=== PATIENT | female | born 1950 | race Caucasian/White ===

== ENCOUNTER 2016-09-08 01:19 | Inpatient (IN) | payer OTHER, MEDICARE ==
[~2016-09-08] VITALS: Ht 156.2 cm; Wt 89.8 kg
[~2016-09-08 01:19] MED LIST: ASPIRIN EC325 M2 PO; COLACE100 M1 PO; DILAUDID2 M1 PO; HYDROCHLOROTH12.5 M2 PO; LIPITOR10 M1 PO; MIRALAX17 G1 PO; MS CONTIN15 M2 PO; MULTI-DAY VITA1 EACH PO; RW; TYLENOL EXTRA500 M2 PO; VITAMIN C500 M6 PO
--- NOTE | 2016-09-08 12:55 | Admission Core Measures ---
Admission Meds I reviewed the following Meds: Current Medications Sig/Gideon Start time Last Medication Dose Stop Time Status Admin Acetaminophen 975 MG ONCE 09/08 NR (Tylenol) 09/08 2358 Atorvastatin Calcium 10 MG DAILY 09/09 1000 UNVr (Lipitor) Cefazolin Sodium 2,000 MG ONCE 09/08 NR (Kefzol-Ancef Inj) 09/08 2358 Hydrochlorothiazide 12.5 MG DAILY 09/09 1000 UNVr (Hydrodiuril) Oxycodone HCl 10 MG ONCE 09/08 NR (Roxicodone) 09/08 2358 Acute Coronary Syndrome Inclusion Criteria ACS Diagnosis No Inpatient Core Measures LDL Reminder: If No, please order W/I first 24hr of stay Congestive Heart Failure Inclusion Criteria CHF Diagnosis No Cerebrovascular accident Inclusion Criteria CVA/TIA Diagnosis No Inpatient Core Measures Bedside Swallow Eval Reminder: If BSE failed, place ST order Antithrombotic Reminder: Order Antithrombotic Medication by end of day 2 Antithrombotic Reminder: Document Reason Antithrombotic Not ordered by end of day 2 AFIB/Flutter Reminder: If Present, add to problem list AFIB/Flutter Reminder: Order Anticoag Medication for pts with AFIB/Flutter Atherosclerosis Reminder: If Present, add to problem list LDL Reminder: If No, please order W/I first 24hr of stay PT Order Reminder: If No, please order Venous thromboembolism Inpatient Core Measures VTE Risk Factors: Age > 40, Surgery No [facility] VTE prophylaxis d/t No contraindications No VTE Pharm Prophylaxis d/t No contraindications Inclusion Criteria - Per Current guidelines, there needs to be overlap - treatment for the first 5 days of Warfarin therapy. - Parenteral Anticoagulation (IV or SC) needs to be - given along with Warfarin therapy. VTE Diagnosis No VTE Type NONE VTE Confirmed by (Test) NONE Problem List As ranked by this Provider includes Assessment & Plan 1. Unilateral primary osteoarthritis, right knee HOME MEDS Home Med List Ascorbate Calcium (Vitamin C) 500 MG TABLET 1 TAB PO DAILY SUPPLEMENT ( Reported) Atorvastatin Calcium (Lipitor) 10 MG TABLET 1 TAB PO DAILY CHOLESTEROL ( Reported) Hydrochlorothiazide 12.5 MG TABLET 1 TAB PO DAILY BP (Reported) Multivitamin (Multi-Day Vitamins) 1 EACH TABLET 1 TAB PO DAILY SUPPLEMENT ( Reported)
[2016-09-08] MEDS ORDERED: ASPIRIN EC325 M2 PO (12:56)
[2016-09-08] MEDS ORDERED: PRILOSEC OTC20 M1 PO (12:56)
[2016-09-08] MEDS ORDERED: MIRALAX17 G1 PO (12:56)
[2016-09-08] MEDS ORDERED: COLACE100 M1 PO (12:56)
[2016-09-08] MEDS ORDERED: DILAUDID2 M1 PO (12:56)
--- NOTE | 2016-09-08 13:00 | Patient Discharge Instructions ---
Discharge Instructions General Discharge Information You were seen/treated for: RIGHT KNEE PAIN You had these procedures: RIGHT TOTAL KNEE REPLACEMENT Watch for these problems: INCREASING PAIN DESPITE THE USE OF PAIN MEDICATION. REDNESS, WARMTH, SWELLING. DISCHARGE OF ANY TYPE FROM INCISION. INABILITY TO BEAR WEIGHT ON RIGHT LEG. FEVER GREATER THAN 101.5 DEGREES. Do not soak the wound: Yes No bath, but you may shower: Yes Other wound care: KEEP WOUND CLEAN AND DRY. NO OINTMENTS OF ANY TYPE ON OR NEAR INCISION. NO EXCEPTIONS. DAILY DRY DRESSING CHANGES Special Instructions: ASPIRIN: YOU WILL BE REQUIRED TO TAKE ASPIRIN TWICE DAILY FOR A MINIMUM OF 3 WEEKS. THIS IS VERY IMPORTANT IT WILL HELP PROTECT YOU FROM DEVELOPING A BLOOD CLOT. PLEASE TAKE WITH FOOD TO PROTECT YOUR STOMACH LINING. YOU HAVE ALSO BEEN GIVEN PRILOSEC WHICH IS A MEDICATION THAT WILL ALSO HELP TO PROTECT YOUR STOMACH. CONSTIPATION: CONSTIPATION IS COMMON WITH THE USE OF PAIN MEDICATIONS. DR. LARIOS HAS GIVEN YOU COLACE AND MIRALAX TO HELP WITH YOUR BOWEL MOVEMENTS. PLEASE TAKE THESE MEDICATIONS DIRECTED. Diet Continue normal diet: Yes Recommended Diet: Regular Additional DIET Information: ADVANCE TOLERATED Activity Full Activity/No Limits: No Activity Self Limited: Yes Pounds, do NOT lift more than: 10 Additional ACTIVITY Info: WEIGHT BEAR TOLERATED Acute Coronary Syndrome Inclusion Criteria At DC or during hospital stay patient has or had the following: ACS DIAGNOSIS No Discharge Core Measures Meds if any: Prescribed or Continued at Discharge Meds if any: NOT Prescribed or Continued at Discharge Congestive Heart Failure Inclusion Criteria At DC or during hospital stay patient has or had the following: CHF DIAGNOSIS No Discharge Core Measures Meds if any: Prescribed or Continued at Discharge Meds if any: NOT Prescribed or Continued at Discharge Cerebrovascular accident Inclusion Criteria At DC or during hospital stay patient has or had the following: CVA/TIA Diagnosis No Discharge Core Measures Meds if any: Prescribed or Continued at Discharge Meds if any: NOT Prescribed or Continued at Discharge Venous thromboembolism Inclusion Criteria VTE Diagnosis No VTE Type NONE VTE Confirmed by (Test) NONE Discharge Core Measures - Per Current guidelines, there needs to be overlap - treatment for the first 5 days of Warfarin therapy. - If discharged on Warfarin prior to 5 days of - overlap therapy, the patient will need to be - assessed for post discharge needs including - *Post discharge parental anticoagulation - *Warfarin and/or parental anticoagulation education - *Follow up date to check INR post discharge At least 5 days overlap therapy as Inpatient No Meds if any: Prescribed or Continued at Discharge Note: Overlap Therapy is Warfarin and Anticoagulant Meds if any: NOT Prescribed or Continued at Discharge
--- NOTE | 2016-09-08 13:04 | Surgical Discharge Summary ---
Visit Information Visit Dates Admission Date: 09/08/16 Discharge Date: 09/11/16 History of Present Illness Chief Complaint: RIGHT KNEE PAIN SECONDARY TO OSTEOARTHRITIS Medical History Neurological: NONE EENT: NONE Cardiovascular: hypertension, hyperlipidemia Respiratory: COPD Gastrointestinal: NONE Hepatic: NONE Renal: NONE Musculoskeletal: NONE, osteoarthritis Psychiatric: NONE Endocrine: NONE Blood Disorders: NONE Cancer(s): NONE SALES PRODUCER/Reproductive: NONE History of MRSA: No History of VRE: No History of CDIFF: No Surgical History Pertinent Surgical History: HYSTERECTOMY Psychosocial History Who Do You Live With? Spouse Services at Home: None What is Your Primary Language? Bruneian Review of Systems: SEE H&P Hospital Course Course Attending Physician: ANITHA LARIOS MD Primary Care Physician: KIERA BOYD APRN [facility] Course: ADIA WAS ADMITTED TO THE HOSPITAL ON 09/08/2016 FOR AN ELECTIVE RIGHT TOTAL KNEE REPLACEMENT. SHE TOLERATED THE PROCEDURE WELL AND SHE WAS TRANSFERRED TO A GENERAL SURGICAL FLOOR. HER VITAL SIGNS WERE STABLE AND WITHIN NORMAL LIMITS. SHE REMAINED NEUROVASCULARLY INTACT. HER DIET WAS ADVANCED AND TOLERATED. SHE VOIDED SPONTANEOUSLY. HER PAIN WAS CONTROLLED WITH PO PAIN MEDICATION. SHE WAS EVALUATED AND TREATED BY PHYSICAL THERAPY AND DEEMED APPROPRIATE FOR DISCHARGE. Allergies: Coded Allergies: Sulfa (Sulfonamide Antibiotics) (FLU LIKE SYMPTOMS 08/27/15) Disposition Summary Disposition Principal Diagnosis: RIGHT KNEE UNILATERAL PRIMARY OSTEOARTHRITIS Additional Diagnosis: NONE Discharge Disposition: home health services Discharge Instructions General Discharge Information Code Status: Full Code Patient's Diet: REGULAR, ADVANCE TOLERATED Patient's Activity: WBAT Follow-Up Instructions/Appts: 6 WEEKS FROM DATE OF SURGERY WITH DR. LARIOS Medications at Discharge Discharge Medications: Continue taking these medications: Atorvastatin Calcium (Lipitor) 10 MG TABLET 1 Tablet ORAL DAILY Comments: LAST DOSE GIVEN ON 08/29/15 AT 4:00PM Hydrochlorothiazide (Hydrochlorothiazide) 12.5 MG TABLET 1 Tablet ORAL DAILY Comments: LAST DOSE GIVEN ON 08/30/15 AT 8:30AM Multivitamin (Multi-Day Vitamins) 1 EACH TABLET 1 Tablet ORAL DAILY Comments: LAST DOSE GIVEN ON 08/30/15 AT 8:30AM Ascorbate Calcium (Vitamin C) 500 MG TABLET 1 Tablet ORAL DAILY Comments: LAST DOSE GIVEN ON 08/30/15 AT 8:30AM Start taking the following new medications: Aspirin (Ecotrin*) 325 MG TABLET. 1 Tablet ORAL TWICE DAILY Qty = 60 No Refills Docusate Sodium (Colace) 100 MG CAPSULE 1 Capsule ORAL TWICE DAILY Qty = 14 No Refills Instructions: DISCONTINUE USE IF YOU DEVELOP LOOSE STOOL OR DIARRHEA Hydromorphone HCl (Dilaudid) 2 MG TABLET 1-2 Tablet ORAL EVERY 4-6 HOURS as needed for PAIN Qty = 36 No Refills Polyethylene Glycol 3350 (Miralax) 17 GRAM POWD.PACK 1 Packet ORAL DAILY Qty = 7 No Refills Instructions: dissolve in water, DISCONTINUE USE IF YOU DEVELOP LOOSE STOOL OR DIARRHEA Omeprazole Magnesium (Prilosec Otc) 20 MG TABLET.DR 1 Tablet ORAL DAILY Qty = 30 No Refills
--- NOTE | 2016-09-08 15:02 | Operative Report ---
Operative/Inv Procedure Report Surgery Date: 09/08/16 Name of Procedure: Right total knee replacement Pre-Operative Diagnosis: Primary right knee DJD Post-Operative Diagnosis: Same Estimated Blood Loss: 50ml to 100ml Surgeon/Hand Turner: RIC MOREL,ANITHA Hinkle Anesthesia: block Operative/Procedure Note Note: Description of Procedure: The patient was taken to the operating room and positively identified. After induction of spinal anesthesia and administration of appropriate pre-operative antibiotics, the patient was positioned supine on the operating room table and all bony prominences were well padded. A well-padded pneumatic tourniquet was placed on the right upper thigh. After performing a surgical timeout, the right lower extremity was prepped and draped in the usual sterile fashion. After exsanguination with Esmarch the tourniquet was inflated to 250mm of mercury. A standard medial parapatellar approach was made to the knee. This was carried down through skin and subcutaneous tissue to the level of the fascia. Meticulous hemostasis was maintained with Bovie electrocautery. The extensor mechanism and patellar retinaculum were opened sharply and the patella was everted. The infrapatellar fat was resected in order to improve exposure. Osteophytes were trimmed from the patella and femoral condyles and the patella was re-everted and tucked laterally. A medial release was performed and the cruciate ligaments were resected. The tibia was then subluxed anteriorly. Utilizing the appropriate extra-medullary guide, the proximal tibia was trimmed perpendicular to the long axis of the tibial shaft. Attention was then turned to the femur. After opening the medullary canal, the distal femoral cut was made in 6 degrees of valgus utilizing the appropriate intra-medullary guide. The extension gap was checked and found to be appropriate. The femur was then sized and the remainder of the femoral cuts were made with a size 3 4-in-1 femoral cutting guide. The flexion gap was checked and found to be symmetric and appropriate. The knee was then trialed with a size 3 femoral component, a size 3 tibial component and a size 13 mm polyethylene insert. The patella was trimmed to accept an A 32 patella. This yielded excellent range of motion, stability and patellar tracking. All trial components were removed and the knee was copiously irrigated with sterile saline. All components were cemented into place with Molt Simplex cement. All the components were of the Primo Triathlon knee system of the above stated sizes. The knee was again irrigated after cementation. The extensor mechanism and patellar retinaculum were repaired using interrupted #1 vicryl suture. The skin was re-approximated with 2-0 vicryl and closed with brijesh. A sterile dressing was applied, the tourniquet was deflated, the patient was awakened and taken to the recovery room in satisfactory condition.
--- NOTE | 2016-09-08 16:59 | PN- Orthopedic ---
Subjective Subjective: POST-OP NOTE: Asking for nicotine patch. She reports heavy smoking, 1 ppd. Taking ice chips. No nausea. Eager for dinner. Not yet out of bed. No dizziness. No shortness of breath. No chest pains. Objective Vital Signs and I&Os pacu flowsheet reviewed Physical Exam: General - alert & oriented x 3. comfortable. no acute distress. Lungs - clear bilaterally. no w/r/r. Cardiac - s1s2. reg. Abdomen - soft. nontender. - arenas draining clear, yellow urine. Extremities - warm bilaterally. right leg dressing c/d/i. ice pack in place. on q in place. able to move toes. still somewhat numb but starting to regain sensation. Assessment/Plan Assessment/Plan This 66 year old female with hx htn is POD#0 s/p right total knee replacement advance diet as tolerated medina-operative ancef x 2 doses pain control as needed on q to be removed on POD#2 dressing change POD#2 d/c arenas in am PT eval f/u am labs nicotine patch ordered asa bid home meds ordered d/c planning, goal is for home tuesday will d/w Core Measures/Miscellaneous Venous Thromboembolism VTE Risk Factors: Age > 40, Surgery VTE Contraindications: No Contraindications VTE Diagnosis: No VTE Type: NONE VTE Confirmed by (Test): NONE Beta Brain Is Beta Brain a Home Med? No Antibiotics Is Patient on Antibiotics? Yes If Yes: prophylaxis
[2016-09-08 18:15] VITALS: BP 136/82
[2016-09-08 20:11] VITALS: BP 125/91
[2016-09-08 22:24] VITALS: BP 120/70
[2016-09-08 23:55] VITALS: BP 118/79
[2016-09-09 04:08] VITALS: BP 100/56
[2016-09-09 08:05] LABS: ABSOLUTE BASOPHIL COUNT 0 /CUMM (0.0-0.2); ABSOLUTE EOSINOPHIL COUNT 0 /CUMM (0.0-0.7); ABSOLUTE GRANULOCYTE CT 10.4 /CUMM (1.4-6.5); ABSOLUTE LYMPH COUNT 0.5 /CUMM (1.2-3.4); ABSOLUTE MONOCYTE COUNT 0.6 /CUMM (0.10-0.60); BASOPHIL % 0 % (0.0-2.0); EOSINOPHIL % 0 % (0-5); GRANULOCYTE % 90.1 % (42.2-75.2); HEMATOCRIT 32.6 % (37-47); MEAN CORPUSCULAR VOLUME 102.8 FL (81.0-99.0); MEAN PLATELET VOLUME 8.3 FL (7.4-10.4); PLATELET COUNT 210 /CUMM (130-400); RBC DISTRIBUTION WIDTH 14.4 % (11.5-14.5); RED BLOOD CELL CT 3.17 /CUMM (4.20-5.40); WHITE BLOOD CELL COUNT 11.6 /CUMM (4.8-10.8)
--- NOTE | 2016-09-09 08:20 | PN- Orthopedic ---
Subjective Subjective: Pt. states she had a good night. Denies pain.Received Diludid PO at night with good relief Objective Vital Signs and I&Os Vital Signs Date Time Temp Pulse Resp B/P B/P Pulse O2 O2 Flow FiO2 Mean Ox Delivery Rate 09/09 0408 98.2 58 18 100/56 93 Room Air 09/09 0000 Room Air 09/08 2355 97.9 62 18 118/79 95 Room Air 09/08 2224 97.6 62 20 120/70 95 09/08 2010 97.1 77 18 125/91 96 09/08 1815 97.7 77 18 136/82 97 Room Air Intake & Output 09/09 1600 09/09 0800 09/09 0000 09/08 1600 09/08 0800 09/08 0000 Intake Total 720 600 Output Total 800 200 Balance -80 400 Intake, IV 600 300 Intake, Oral 120 300 Output, Urine 800 200 Patient 198 lb Weight Weight Reported by Patient Measurement Method Alert, oriented Lungs clear bilat after clearing with cough COR regular Abdomen benign R knee with Edwin dressing over C/D/I On Q pump intact Calf supple Foot warm with good distal perfusion Gross motor fxn intact,limited knee motion due to dressing.Good peripheral sensation. Assessment/Plan Assessment/Plan s/p RTKA for DJD Progressing well as expected. Stable hemodynamically with adequate vital signs. RLE with adeaute neurovascular perfusion. Pain adequately controlled with oral Dilaudid and On Q pump. Dressing change and On Q pump removal tomorrow Awaiting PT eval. and mobilization today Taking PO well,making adequate urine; will hep lock IVF and d/c [place] On ASA for anticoagulation Discharge likely Tuesday to home. Core Measures/Miscellaneous Venous Thromboembolism VTE Risk Factors: Age > 40, Surgery VTE Contraindications: No Contraindications VTE Diagnosis: No VTE Type: NONE VTE Confirmed by (Test): NONE Beta Brain Is Beta Brain a Home Med? No Antibiotics Is Patient on Antibiotics? Yes If Yes: prophylaxis
[2016-09-09 14:40] VITALS: BP 122/60
[2016-09-09 22:32] VITALS: BP 124/68
[2016-09-10 06:10] VITALS: BP 138/72
[2016-09-10 07:41] LABS: ABSOLUTE BASOPHIL COUNT 0 /CUMM (0.0-0.2); ABSOLUTE EOSINOPHIL COUNT 0.1 /CUMM (0.0-0.7); ABSOLUTE GRANULOCYTE CT 5.7 /CUMM (1.4-6.5); ABSOLUTE LYMPH COUNT 1.6 /CUMM (1.2-3.4); ABSOLUTE MONOCYTE COUNT 0.8 /CUMM (0.10-0.60); BASOPHIL % 0.2 % (0.0-2.0); EOSINOPHIL % 0.7 % (0-5); GRANULOCYTE % 69.4 % (42.2-75.2); HEMATOCRIT 32.1 % (37-47); MEAN CORPUSCULAR HGB 34.8 PG (27.0-31.0); MEAN CORPUSCULAR HGB CONC 33.7 G/DL (33.0-37.0); MEAN CORPUSCULAR VOLUME 103.3 FL (81.0-99.0); MEAN PLATELET VOLUME 8.3 FL (7.4-10.4); PLATELET COUNT 208 /CUMM (130-400); RBC DISTRIBUTION WIDTH 14.7 % (11.5-14.5); RED BLOOD CELL CT 3.11 /CUMM (4.20-5.40); WHITE BLOOD CELL COUNT 8.2 /CUMM (4.8-10.8)
[2016-09-10 09:45] VITALS: BP 142/78
--- NOTE | 2016-09-10 10:38 | PN- Orthopedic ---
Subjective Subjective: POD#2 S/P RIGHT TKA 7/10 ANTERIOR KNEE PAIN LYING IN BED DENIES CP, SOB, NO N+V WITH DIET Objective Vital Signs and I&Os Vital Signs Date Time Temp Pulse Resp B/P B/P Pulse O2 O2 Flow FiO2 Mean Ox Delivery Rate 09/10 0945 98.4 70 18 142/78 94 Room Air 09/10 0610 98.1 66 20 138/72 95 Room Air 09/09 2232 98.0 74 20 124/68 92 Room Air 09/09 1440 98.5 76 20 122/60 93 Room Air Intake & Output 09/10 1600 09/10 0800 09/10 0000 09/09 1600 09/09 0800 09/09 0000 Intake Total 601 110 1156 720 600 Output Total 250 150 800 200 Balance 754 579 9488 -80 400 Intake, IV 200 600 300 Intake, Oral 400 250 800 120 300 Output, Urine 250 150 800 200 Patient 198 lb Weight Weight Reported by Patient Measurement Method Physical Exam: CV: RRR LUNGS: CLEAR ABD: SOFT, +BS EXT: DRSG CHANGED, WOUND C/D/I NO CALF TENDERNESS BILAT DISTAL CMS INTACT Assessment/Plan Assessment/Plan ORTHO STABLE PLAN TITRATE PAIN MEDS ASA FOR DVT PROPHYLAXIS MOBILIZE WITH PT/STAIRS D/C HOME PLAN Core Measures/Miscellaneous Venous Thromboembolism VTE Risk Factors: Age > 40, Surgery VTE Contraindications: No Contraindications VTE Diagnosis: No VTE Type: NONE VTE Confirmed by (Test): NONE Beta Brain Is Beta Brain a Home Med? No Antibiotics Is Patient on Antibiotics? Yes If Yes: prophylaxis
[2016-09-10 14:31] VITALS: BP 116/70
[2016-09-10 22:34] VITALS: BP 149/81
[2016-09-11 06:52] VITALS: BP 150/70
--- NOTE | 2016-09-11 11:10 | PN- Orthopedic ---
Subjective Subjective: POD #3 s/p right knee replacement. Resting in bed. No complaints offered. Denies N/V, F/C, CP/SOB. Working with PT. Voiding spontaneously. had multiple BMs during hospital stay, formed. Objective Vital Signs and I&Os Vital Signs Date Time Temp Pulse Resp B/P B/P Pulse O2 O2 Flow FiO2 Mean Ox Delivery Rate 09/11 0652 99.3 70 20 150/70 95 09/11 0000 Room Air 09/10 2234 98.2 80 20 149/81 94 Room Air 09/10 1600 Room Air 09/10 1431 98.4 72 20 116/70 95 Room Air Intake & Output 09/11 1600 09/11 0800 09/11 0000 09/10 1600 09/10 0800 09/10 0000 Intake Total 250 480 600 400 250 Output Total 900 325 250 150 Balance -650 155 600 150 100 Intake, IV 10 Intake, Oral 240 480 600 400 250 Number 0 3 Bowel Movements Output, Urine 900 325 250 150 Physical Exam: Gen: AAox3 in NAD Cor; S1+S2+ Lungs: CTA gaby Abd: soft, NT, ND, +Bs x4 Ext: right knee dressing removed replaced. Incision C/D/i wtih brijesh. no surrounding erythema or drainage noted. Dorsiflexion and plantar flexion intact. Sensation intact, palpable DP pulses. Current Medications: Current Medications Sig/Gideon Start time Last Medication Dose Route Stop Time Status Admin Aspirin 325 MG BID 09/080 AC 09/11 PO 0931 Atorvastatin Calcium 10 MG 1700 09/09 1700 AC 09/10 PO 1643 Docusate Sodium 100 MG BID 09/08 2200 AC 09/11 PO 0931 Hydrochlorothiazide 12.5 MG DAILY 09/09 1000 AC 09/11 PO 0931 Hydromorphone HCl 2 MG Q4P PRN 09/08 1800 AC 09/11 PO 0628 Hydromorphone HCl 4 MG Q4P PRN 09/08 1800 AC PO Morphine Sulfate 2 MG Q2P PRN 09/08 1800 AC 09/10 IV 1344 Nicotine 21 MG DAILY 09/08 1700 AC 09/11 TOP 0928 Omeprazole 40 MG DAILY AC 09/09 0700 AC PO Ondansetron HCl 4 MG Q6P PRN 09/08 1800 AC IV Patient Medication 1 ED .STK-MED ONE 09/10 1401 MI Teaching ED 09/10 1402 Polyethylene Glycol 17 GM DAILY 09/09 1000 AC 09/09 PO 0841 Promethazine HCl 12.5 MG Q6P PRN 09/08 1800 AC IV 09/15 1244 Results Last 48 Hours of Labs: Laboratory Tests 09/10 0620 Chemistry Sodium (137 - 145 mmol/L) 140 Potassium (3.5 - 5.1 mmol/L) 3.6 Chloride (98 - 107 mmol/L) 101 Carbon Dioxide (22 - 30 mmol/L) 32 H Anion Gap (5 - 16) 7 BUN (7 - 17 mg/dL) 18 H Creatinine (0.5 - 1.0 mg/dL) 1.1 H Estimated GFR (>60 ml/min) 50 L BUN/Creatinine Ratio (7 - 25 %) 16.4 Hematology CBC w Diff NO MAN DIFF REQ WBC (4.8 - 10.8 /CUMM) 8.2 RBC (4.20 - 5.40 /CUMM) 3.11 L Hgb (12.0 - 16.0 G/DL) 10.8 L Hct (37 - 47 %) 32.1 L MCV (81.0 - 99.0 FL) 103.3 H MCH (27.0 - 31.0 PG) 34.8 H RDW (11.5 - 14.5 %) 14.7 H Plt Count (130 - 400 /CUMM) 208 MPV (7.4 - 10.4 FL) 8.3 Gran % (42.2 - 75.2 %) 69.4 Lymphocytes % (20.5 - 51.1 %) 20.2 L Monocytes % (1.7 - 9.3 %) 9.5 H Eosinophils % (0 - 5 %) 0.7 Basophils % (0.0 - 2.0 %) 0.2 Absolute Granulocytes (1.4 - 6.5 /CUMM) 5.7 Absolute Lymphocytes (1.2 - 3.4 /CUMM) 1.6 Absolute Monocytes (0.10 - 0.60 /CUMM) 0.8 H Absolute Eosinophils (0.0 - 0.7 /CUMM) 0.1 Absolute Basophils (0.0 - 0.2 /CUMM) 0 PUBS MCHC (33.0 - 37.0 G/DL) 33.7 Assessment/Plan Assessment/Plan A: POD #3 s/p right TKR; AVSS Plan; D/C HHS. Core Measures/Miscellaneous Venous Thromboembolism VTE Risk Factors: Age > 40, Surgery VTE Contraindications: No Contraindications VTE Diagnosis: No VTE Type: NONE VTE Confirmed by (Test): NONE Beta Brain Is Beta Brain a Home Med? No Antibiotics Is Patient on Antibiotics? Yes If Yes: prophylaxis
== END 2016-09-11 11:25 | disposition home health service (06) | DRG 470 ==
LOC: SDA 01:19 → 2NB 01:19 → ENRESERV 16:53 → 2NB 17:25 → ENPENDDIS 09-11 10:11 → 2NB 09-11 11:25
PROVIDERS: Nurse Practitioner; Physician Assistant Surgical; ADMIT Orthopaedic Surgery
PROC: 0SRC0J9 Replacement of Right Knee Joint with Synthetic Substitute, Cemented, Open Approach (ICD-10-PCS; principal; 2016-09-08)
DX: M17.11 Unilateral primary osteoarthritis, right knee (principal); J44.9 Chronic obstructive pulmonary disease, unspecified; I10 Essential (primary) hypertension; E78.5 Hyperlipidemia, unspecified; F17.200 Nicotine dependence, unspecified, uncomplicated; E66.9 Obesity, unspecified; Z68.36 Body mass index [BMI] 36.0-36.9, adult
CPT/HCPCS: 2NBSP; 36415; 82436; 88305; 97110-GO; 97116-GO; 97161-GP; 97530-GO; C1713; J0131; J0690; J2405; J2550; J2795; J7042